=== PATIENT | male | born 1990 | race Two or more races ===

== ENCOUNTER 2021-01-09 05:04 | Emergency (ER) | payer SELFPAY ==
[~2021-01-09] VITALS: Ht 182.9 cm; Wt 85.3 kg
--- NOTE | 2021-01-09 05:10 | NUR ---
EULALIA FROM A HOTEL ROOM FOR HEROIN OVERDOSE. PT AWAKE AND CONFUSED. BREATHING EVENLY. NO RESPIRATORY DISTRESS NOTED. HAS REC'D NARCAN 4 IM LAUNDRY OR [employer] COUNTER CLERK. PT WAS PLACED IN BED 10 ER ON MONITOR. VSS. WILL CONT TO MONITOR
[2021-01-09] MEDS ORDERED: IV NS 0.9% 1,000 ML BAG IV ONE (05:30)
[2021-01-09] MEDS ORDERED: LORAZEPAM INJ 2 MG/ML VIAL IM ONE (05:30)
[2021-01-09 05:36] LABS: BASOPHILS # (AUTO) 0.1 K/uL (0.0-0.2); BASOPHILS % (AUTO) 0.7 % (0.0-2.0); EOSINOPHILS % (AUTO) 2.5 % (0.0-6.0); HEMATOCRIT 41 % (39-51); HEMOGLOBIN 13.8 g/dL (13.5-17.5); LYMPHOCYTES % (AUTO) 25.1 % (20.0-44.0); MEAN CORPUSCULAR HGB CONC 34 g/dl (31.0-36.0); MEAN CORPUSCULAR VOLUME 92 fL (80-96); MONOCYTES # (AUTO) 0.8 K/uL (0.1-1.30); MONOCYTES % (AUTO) 10.2 % (2.0-12.0); NEUTROPHILS # (AUTO) 4.8 K/uL (1.8-8.9); NEUTROPHILS % (AUTO) 61.5 % (43.0-81.0); PLATELET COUNT (AUTO) 210 K/uL (150-450); RED BLOOD CELL COUNT(AUTO) 4.39 MIL/uL (4.5-6.0); WHITE BLOOD COUNT (AUTO) 7.8 K/uL (4.3-11.0)
--- NOTE | 2021-01-09 05:45 | NUR ---
PER DR BILLY, CANCEL ATIVAN
[2021-01-09 05:48] LABS: CALCIUM, SERUM 9.1 mg/dL (8.5-10.1); CARBON DIOXIDE 25 mmol/L (21-32); CHLORIDE 106 mmol/L (98-107); CREATININE 0.7 mg/dL (0.6-1.3); GLUCOSE 112 mg/dL (74-106); POTASSIUM 3.7 mmol/L (3.5-5.1); SODIUM SERUM 141 mmol/L (136-145); UREA NITROGEN, BLOOD 13 mg/dL (7-18)
[2021-01-09 05:54] LABS: ALANINE AMINOTRANSFERASE 43 U/L (12-78); ALBUMIN 3.9 g/dL (3.4-5.0); ALCOHOL, BLOOD < 3 mg/dL (0-0); ALKALINE PHOSPHATASE 68 U/L (46-116); ASPARTATE AMINOTRANSFERASE 41 U/L (15-37); BILIRUBIN,DIRECT 0.2 mg/dL (0.0-0.2); BILIRUBIN,TOTAL 0.4 mg/dL (0.2-1.0); TOTAL PROTEIN, SERUM 7.4 g/dL (6.4-8.2)
[2021-01-09 05:58] LABS: ACETAMINOPHEN < 2 ug/ml (10-30)
[2021-01-09 06:03] LABS: BILIRUBIN,URINE NEGATIVE (NEGATIVE); COLOR,URINE YELLOW (YELLOW); LEUKOCYTE ESTERASE ,URINE NEGATIVE (NEGATIVE); NITRITE, URINE NEGATIVE (NEGATIVE); PROTEIN,URINE TRACE mg/dl (NEGATIVE); UGLUCOSE NEGATIVE (NEGATIVE); UROBILINOGEN,URINE 0.2 EU/dL (0.2)
[2021-01-09 06:26] LABS: BACTERIA,URINE Few /HPF (None Seen); RBC,URINE 0-2 /HPF (0-2); SQUAMOUS EPITHELIAL CELL,UR Few /HPF (None Seen)
--- NOTE | 2021-01-09 06:32 | NUR ---
MD Hillman ordered to stop IV NS
--- NOTE | 2021-01-09 07:45 | NUR ---
pt sleeping on monitors vss
[2021-01-09] MEDS ORDERED: NALO1DIS2 IJ (09:04)
--- NOTE | 2021-01-09 10:04 | NUR ---
pt doing better , ate breakfast given clothes PT. VERBALIZED UNDERSTANDING OF AFTERCARE INSTRUCTIONS.IV removed. Catheter intact and site benign. Pressure and 4x4 applied to site. No bleeding noted.
[2021-01-09 10:05] VITALS: BP 124/68
== END 2021-01-09 10:08 | disposition home or self-care (01) ==
LOC: ER 05:06
DX: T40.1X1A Poisoning by heroin, accidental (unintentional), initial encounter (principal); R94.31 Abnormal electrocardiogram [ECG] [EKG]; Y92.89 Other specified places as the place of occurrence of the external cause
CPT/HCPCS: 36415; 80048; 80076; 80143; 80307; 80320; 81001; 85025; 93005; 96360; 99284; J7030; G0480